=== PATIENT | female | born 1955 | race Caucasian/White ===

== ENCOUNTER → 2019-03-22 | Outpatient (CLI) | payer OTHER ==
--- NOTE | 2019-03-23 09:31 | XCELERA REPORT ---
[address] [address] Lower Extremity Arterial Evaluation Name: LETI CHACON Age: 63 yrs Gender: Female : 1955 Patient Status: Outpatient Patient Location: Study Date: 03/22/2019 01:17 PM Procedure: A color flow and duplex scan of the lower extremity arteries was performed on the right with velocity and waveform anaylsis. Reason For Study: RT FOOT PAIN Ordering Physician: DI MEDRANO Performed By: uJan Caballero Measurements and Calculations Right Left [employer]CH[employer] PSV 109.6 cm/sec Prox PFA PSV -91.8 cm/sec Prox SFA PSV 151.9 cm/sec Mid SFA PSV -91.1 cm/sec Dist SFA PSV -84.9 cm/sec Prox Pop A PSV 79.1 cm/sec Dist Pop A PSV -77.1 cm/sec Dist REYES PSV 61.1 cm/sec Dist [employer]SEM[employer] G[employer]AME PSV 82.5 cm/sec Dayne Pedis PSV 15.5 100.9 cm/sec Right Side Arterial Evaluation Normal velocity and triphasic waveforms noted from the Common Femoral artery to the infrageniculate vessels . Biphasic with low velocity in the Dorsalis Pedis arteries. Distally retrograde flow. Ankle Brachial index not done. Interpretation Summary Mild hemodynamically significant lesions in the right lower extremity only, on duplex imaging, at rest. Duplex findings are normal except in the right Dorsalis Pedis artery. : DI MEDRANO > Di Medrano
== END ==
LOC: SP 12:44
PROVIDERS: ATTEND Surgery
DX: M79.671 Pain in right foot (principal)
CPT/HCPCS: 93926